=== PATIENT | male | born 1930 | race Caucasian/White ===

== ENCOUNTER 2016-06-04 16:05 | Inpatient (IN) | payer MEDICARE, BC ==
--- NOTE | ~2016-06-04 | US77 ---
[facility] A Service of [facility] RADIOLOGY TEXT RESULTS PATIENT: GISELL NATARAJAN LOCATION: [place] [address] : 30 UNIT #: [id number] AGE: [address]: Debbie David MD SEX: M ORDER DR: [id number] [facility] [address] [facility]. [place], [place] [address] [id number] MR#: [id number] Acc #: [id number] NAME: GISELL NATARAJAN. : 1930 SEX: M STUDY DATE/TIME: 06/05/2016 10:27 UNIT: [facility] ROOM: [facility] STUDY DESCRIPTION: US Kidney Bilateral Complete Attending Physician: Debbie David M.D. Ordering Physician: Alexis Gonzalez Jr., M.D. Primary Care Physician: Da Martines M.D. MEDICAL IMAGING REPORT This report is preliminary unless electronic signature is present EXAM Renal ultrasound INDICATIONS Chronic kidney disease. BUN 55 creatinine 1.8 GFR 33 PROCEDURE Philip-scale and Doppler imaging of the kidneys and bladder. COMPARISON None FINDINGS Right kidney measures 9.8 cm. Cortical thickness is 7 mm. Left kidney not well seen measures approximately 10.9 cm. There is no hydronephrosis. There are a few echogenic foci in both kidneys that may represent calculi. IMPRESSION 1. Difficult visualization of the left kidney. 2. No hydronephrosis. 3. Right renal cortical thinning may represent sequela of chronic renal disease. 4. Possible bilateral nonobstructing renal calculi Dictated by... Uri Retana M.D. THIS IS AN ELECTRONICALLY VERIFIED REPORT Uri Retana M.D. at 06/06/2016 2:17 PM EED/rnr TD: 06/05/2016 12:11 JOB #: [id number] [facility] A Service of [facility] RADIOLOGY TEXT RESULTS PATIENT: GISELL NATARAJAN LOCATION: [place] [address] : 30 UNIT #: [id number] AGE: [address]: Debbie David MD SEX: M ORDER DR: MEDICAL IMAGING REPORT Page 1 of 1 COPY
--- NOTE | ~2016-06-04 | CR72 ---
[facility] A Service of [facility] RADIOLOGY TEXT RESULTS PATIENT: GISELL NATARAJAN LOCATION: [place] [address] : 30 UNIT #: [id number] AGE: [address]: ANNAMARIA LEAL MD SEX: M ORDER DR: [id number] [facility] [address] [facility]. [place], [place] [address] [id number] MR#: [id number] Acc #: [id number] NAME: GISELL NATARAJAN. : 1930 SEX: M STUDY DATE/TIME: 06/04/2016 14:19 UNIT: [facility] ROOM: STUDY DESCRIPTION: CR Chest Single View Portable Attending Physician: Juan Olivares M.D. Ordering Physician: Juan Olivares M.D. Primary Care Physician: Da Martines M.D. MEDICAL IMAGING REPORT This report is preliminary unless electronic signature is present EXAM Portable chest 06/04/2016 INDICATIONS Shortness of breath and pneumonia today. COMPARISON STUDIES Comparison with 01/16/2014 FINDINGS There are bilateral lower zone infiltrates consistent with pneumonia. There is a small left pleural effusion. Heart size stable. Calcified mediastinal lymph nodes. Pacemaker. IMPRESSION Bilateral lower zone infiltrates consistent with pneumonia. Small left pleural effusion. There may be a trace right pleural effusion which was not mentioned above. Dictated by... Anton Gonsalez M.D. THIS IS AN ELECTRONICALLY VERIFIED REPORT Anton Gonsalez M.D. at 06/05/2016 7:54 AM MELA/brigido TD: 06/04/2016 15:16 JOB #: [id number] MEDICAL IMAGING REPORT Page 1 of 1 COPY
--- NOTE | ~2016-06-04 | EKG ---
PATIENT: GISELL NATARAJAN UNIT #: [id number] Ventricular Rate: 66 BPM Atrial Rate: 55 BPM QRS Duration: 126 ms Q-T Interval: 406 ms QTC Calculation(Bezet): 425 ms Calculated R [place]: 119 degrees Calculated T [place]: 42 degrees Diagnosis Line: Ventricular-paced rhythm with occasional Premature Diagnosis Line: ventricular complexes Diagnosis Line: Abnormal ECG Diagnosis Line: When compared with ECG of 04-JUN-2016 13:45, Diagnosis Line: (unconfirmed) Diagnosis Line: No significant change was found Diagnosis Line: Confirmed by GABRIELLE JACKSON MD ([id number]) on 06/05/2016 Diagnosis Line: 5:02:08 AM INTERPRETING MD: MANUEL IYER
--- NOTE | ~2016-06-04 | HP ---
Unit #: [id number] #: [id number] Patient: GISELL NATARAJAN [id number] [place] [id number] [facility]. [place], [place] [address] [id number] I MR#: [id number] NAME: GISELL NATARAJAN. ROOM: [address] Age: 86 Sex: M Admission Date: 06/04/2016 : 1930 Attending Physician: Amilcar Auguste M.D. Primary Care Physician: Da Martines M.D. HISTORY AND PHYSICAL CHIEF COMPLAINT Shortness of air. HISTORY OF PRESENT ILLNESS The patient is an 86-year-old male with a history of an atrial fibrillation on anticoagulation, brought to the emergency room from the [facility] with the decreased oxygenation and increased congestion and labored breathing and as per records the patient was 87% to 90% at room air and with the respiratory rate 24. The patient is unable to provide any history as the patient has been on the BiPAP and the history is obtained by speaking to the patient's and the son at the bedside. The patient has been having congestion for the last one to two days. The patient was diagnosed with the pneumonia at the halfway and is started on Levaquin and patient was gradually getting worse. The patient is a DNR/DNI and the chest x-ray shows bilateral lower lobe infiltrates consistent with pneumonia. The patient's lactic acid is 3.4. The patient is being admitted for the above reasons with the sepsis protocol and to the ICU. PAST MEDICAL HISTORY History of hypertension, atrial fibrillation, status post permanent pacemaker, hyperlipidemia, hypothyroidism, depression, benign prostatic hypertrophy, chronic venous stasis, chronic kidney disease, degenerative joint disease. PAST SURGICAL HISTORY EGD, TURP, I/D of the left foot hematoma. ALLERGIES No known allergies. HOME MEDICATIONS He is on breathing treatment, melatonin, Tylenol/APAP, senna, Synthroid, zinc, metoprolol, Coumadin and sertraline and Proscar. FAMILY HISTORY Positive for congestive heart failure. SOCIAL HISTORY The patient is a resident at the halfway. He stopped smoking about 50 years ago, does not drink alcohol. REVIEW OF SYMPTOMS Unit #: [id number] #: [id number] Patient: GISELL NATARAJAN Unable to obtain. PHYSICAL EXAMINATION GENERAL APPEARANCE: On examination the patient is lying on a bed not in acute distress. VITAL SIGNS: Temperature 101.2, pulse 81, respiratory rate 37, blood pressure 141/124, sating 92% at 4 L. HEENT: Head atraumatic, normocephalic. Pupils equal, round and reacting to light and accommodation. Extraocular movements are intact. Dry mucous membranes. NECK: Supple. LUNGS: Decreased air entry at the bases. Positive for rhonchi. HEART: Irregular rate and rhythm. ABDOMEN: Soft, positive bowel sounds. EXTREMITIES: No cyanosis. No clubbing. NEUROLOGIC: The patient is lethargic and unable to follow the commands. DIAGNOSTIC STUDIES LABORATORY DATA: Blood gas pH 7.4, pCO2 36, pO2 70, bicarb 23, oxygen saturation 92.4. Glucose 135, BUN 51, creatinine 1.5, sodium 142, potassium 3.9, chloride 107, bicarb 21, calcium 8.9, total protein 6.4, albumin 2.5, BNP is 1542 and lactic acid is 3.4, INR is 6.1, WBC is 6.4, hemoglobin 12.9, hematocrit 40.2, platelets 189, neutrophils 88.3, bands 1. Flu screen is negative. ASSESSMENT 1. Sepsis. 2. Bilateral lower lobe pneumonia. 3. Acute respiratory failure on BiPAP. 4. Coumadin toxicity. PLAN 1. Plan is to admit the patient to the inpatient with the ICU. 2. Patient will have critical care consult with Dr. Mcleod and the Renal consult with chronic kidney disease. 3. IV antibiotic with Maxipime and Zithromax. 4. Continue with the sepsis protocol. 5. The patient's BNP is 1500 and will give a dose of Lasix. 6. Patient is a DNR. Further recommendations will follow as more lab results are available. Dictated by Beckie Watson TD: 06/04/2016 17:12 JOB #: [id number] Unit #: [id number] #: [id number] Patient: GISELL NATARAJAN HISTORY AND PHYSICAL Page 1 of 1 X X HISTORY AND PHYSICAL
--- NOTE | ~2016-06-04 | CO ---
Unit #: [id number] #: [id number] Patient: GIESLL LOPEZ [id number] [address] [place], [place] [address] [id number] I MR#: [id number] NAME: GISELL LOPEZ ROOM: 547 Age: 86 Sex: M Admission Date: 06/04/2016 : 1930 Attending Physician: Debbie David M.D. Primary Care Physician: Da Martines M.D. Consultation Date: 06/05/2016 CONSULTATION REPORT REASON FOR CONSULT Acute on chronic kidney disease. HISTORY OF PRESENT ILLNESS Mr. Lopez is an 86-year-old detention patient who was admitted for shortness of breath. Most of the history was obtained from the chart and nursing at the patient is currently on BiPAP and not able to give any history. He does have a history of atrial fibrillation and it looks like he was here back in March after a fall with a pelvic fracture. He is known to have some underlying chronic kidney disease and now has an acute kidney injury with his acute illness. He was diagnosed with pneumonia at [facility] and apparently had been started on some Levaquin at that time. He continued to get worse prompting his visit here to the emergency room. The patient has been started on hospital-acquired pneumonia IV antibiotic protocol and is currently on BiPAP. He is a DNR/DNI so he is not to be put on the ventilator. The patient did have a lactic acidosis on admission. He is urinating via a Ponce. There have been no reports of hematuria. He has no swelling. I do not see on any NSAIDs or any contrast dye exposure. It is not clear what his p.o. status has been the last few days. PAST MEDICAL HISTORY Hypertension, AFib, history of pacemaker, hyperlipidemia, hypothyroidism, depression, BPH, chronic venostasis, chronic kidney disease and degenerative joint disease. PAST SURGICAL HISTORY He has had a TURP. He has had foot surgery and a pacemaker placement. He has had surgery for his hip. SOCIAL HISTORY He is a detention resident. He quit smoking a number of years ago. There is no alcohol or drug abuse reported. FAMILY HISTORY Not able to be obtained from the patient. The chart says that there is a family history of heart problems including congestive heart failure. ALLERGIES He has no known drug allergies. HOME MEDICINES 1. Proscar 5 mg at bedtime. 2. Zoloft 25 mg a day. Unit #: [id number] #: [id number] Patient: GISELL LOPEZ 3. Coumadin as directed. 4. Metoprolol 25 mg twice a day. 5. Zinc sulfate daily. 6. Synthroid 50 mcg a day. 7. Senna twice a day. 8. Tylenol p.r.n. 9. Melatonin 5 mg at bedtime. 10. Combivent inhaler. REVIEW OF SYSTEMS A complete 12-point review of systems was completed with the above findings. Further review of systems was simply not able to be obtained secondary to the patient being on BiPAP and ill. He has had some low-grade fevers here. There have been no reports of vomiting or diarrhea. No reports of bright red blood per rectum or melena. No reports of rashes. No pain issues. Again, unless otherwise indicated, the review of systems was not able to be obtained. PHYSICAL EXAMINATION GENERAL APPEARANCE: This is an elderly, 86-year-old male somewhat lethargic on BiPAP but in no acute distress. VITAL SIGNS: The patient is afebrile. Pulse 64. Respiratory rate 26. Blood pressure 121/59. Is and Os are pending. HEENT: Head is atraumatic, normocephalic. Eyes show pink conjunctivae with no scleral icterus. No nasal drainage or nose bleed. Oropharynx is dry. No thrush noted. He is on BiPAP. NECK: No rigidity. HEART: Paced and regular with no significant murmur or rub appreciated. LUNGS: Bilateral rhonchi present with BiPAP machine. Breathing is unlabored at rest. ABDOMEN: Thin and soft, nontender. No masses appreciated. EXTREMITIES: No lower extremity cyanosis or pitting edema. SKIN: Dry with no rashes. GENITOURINARY: Ponce catheter is in place with nonbloody urine. MUSCULOSKELETAL: No joint effusions noted. No CVA tenderness to palpation. NEUROLOGIC: The patient does appear to have generalized weakness but I do not see any focal deficits. LYMPHATIC: There is no neck, cervical lymphadenopathy. PSYCHIATRIC: Exam unable to be assessed. DIAGNOSTIC STUDIES LABORATORY: Chemistry this morning: Sodium 146, potassium 4.1, chloride 113, bicarb 20, glucose 129, BUN 55, creatinine 1.8. CBC showed a normal white count of 9, hemoglobin 12, platelet count 167. UA was nitrite positive with numerous red and white blood cells and bacteria. Lactic acid was 3.6. BNP was elevated at 1,500. INR was 6.1. Admission creatinine was 1.5. Initial flu screen was negative. Initial ABG noteworthy for a pO2 of 70. Review of old labs shows a creatinine of 1.3 in March and it looks like his baseline creatinine is in the mid one range. Previous urines here have mostly been negative for protein and blood. IMAGING: Chest x-ray on admission showed bilateral pneumonia. Review of old imaging here at [facility]. I do see an abdominal ultrasound in March 2012. It does not look like the kidneys were imaged at that time. There was a CT of the abdomen in February 2011. There were a few small stones in the kidneys, otherwise, no Unit #: [id number] #: [id number] Patient: GISELL LOPEZ hydronephrosis. Kidney ultrasound in April of 2005 showed smaller 9 cm kidneys. ASSESSMENT AND PLAN 1. Acute on chronic kidney disease stage 3. This looks to be prerenal with his pneumonia and acute illness. The patient looks dehydrated on exam and is noted to have a higher than expected hemoglobin considering his kidney disease. Therefore, I will give him some IV fluids but gently considering his breathing issues. His chronic kidney disease is likely related to small vessel atherosclerotic disease and nephrosclerosis. 2. Urinary tract infection. The patient is being covered with broad-spectrum antibiotics and we will follow up the urine culture that is pending. 3. Lactic acidosis. This is likely due to his pneumonia and the patient is being treated with sepsis protocol. Again, he is DNR and does not want to be put on the ventilator according to the notes. 4. History of nephrolithiasis. The patient is noted to have some blood in the urine and, with his history of kidney stones, we should recheck a kidney ultrasound to rule out any upper tract obstruction. 5. Pneumonia on antibiotic protocol for hospital-acquired pneumonia. 6. History of AFib. 7. Coumadin toxicity likely related to poor p.o. intake. 8. The patient is a DNR/DNI. I would like to thank Dr. Auguste for this consult and the opportunity to participate in the evaluation and care of Mr. Lopez. Dictated by... Alexis Gonzalez Jr., M.D. BRIANNA/caprice TD: 06/05/2016 11:14 JOB #: [id number] CONSULTATION REPORT Page 1 of 1 X Alexis Gonzalez MD X CONSULTATION REPORT
--- NOTE | ~2016-06-04 | DS ---
Unit #: [id number] #: [id number] Patient: GISELL NATARAJAN [id number] [address] [address] [id number] I MR#: [id number] NAME: GISELL NATARAJAN. ROOM: 54 Age: 86 Sex: M Admission Date: 06/04/2016 : 1930 Discharge Date: 06/05/2016 Attending Physician: Debbie David M.D. Primary Care Physician: Da Martines M.D. DISCHARGE SUMMARY REASON FOR ADMISSION Dyspnea. HISTORY OF PRESENT ILLNESS/HOSPITAL COURSE The patient originally was admitted secondary to shortness of air on 06/04/2016. Please see History and Physical for complete details. When I saw and evaluated the patient on the morning of 06/05/2016, after a very lengthy discussion with the patient's family who was present at bedside and apprised overall long-term prognosis of the patient. Family members have requested DNR status as well as comfort care measures only. They also requested hospice consultation. Later on, hospice saw and evaluated the patient and recommended transfer to inpatient facility to which the patient was later transferred on the afternoon of 06/05/2016 to inpatient facility for ongoing care. Unfortunately, his overall long-term prognosis is quite poor. Family members are well aware. CURRENT CLINICAL DIAGNOSIS AT TIME OF TRANSFER 1. Bilateral lower lobe pneumonia likely secondary to aspiration. 2. Sepsis present on admission. 3. Acute hypoxic respiratory failure. 4. Coumadin toxicity. 5. Chronic deconditioning. 6. 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 7. Hypertension. 8. Atrial fibrillation. 9. Prior history of permanent pacemaker placement. 10. Hyperlipidemia. 11. Depression. 12. Benign prostatic hypertrophy. 13. Chronic venous stasis. 14. Chronic kidney disease. 15. Failure to thrive. DISPOSITION To inpatient hospice rehab for ongoing care. Unit #: [id number] #: [id number] Patient: GISELL NATARAJAN Dictated by... Beckie Griffin/luan TD: 06/06/2016 20:38 JOB #: [id number] DISCHARGE SUMMARY Page 1 of 1 X Debbie David MD DISCHARGE SUMMARY
--- NOTE | ~2016-06-04 | A ---
[facility] Nutrition Therapy DATE: 06/05/16 Patient: GISELL NATARAJAN Physician: SARWAT Address: [address] [place] [address] DRIVE Room/Bed: [address] [place] [address], Zip: [place] [address] Admit Date: 06/04/16 Date of : 30 Height: 6 4 Weight: 145 65.77 NUTRITIONAL ASSESSMENT: REASON: Low BMI Admitting Dx: 86 y/o male admitted with DALY PNA from [facility] PMH: A-fib, DJD, CKD, HTN, HLD, hypthyroidism, depression, permanent pacemaker Anthropometrics: Ht: 76", Wt: 65.8 kg (144 lbs), BMI: 17 (underweight) Labs: Glucose 129, Na 146, BUN 55, Creat 1.8, GFR 33.3 Meds: Synthroid, Senokot, Nacl I/O & Bowel function: No shift assessment available yet Skin Integrity: No shift assessment available yet Estimated Nutrition Needs: Patient has increased nutrient needs 5918-8118 kcals per day (30-35 kcals/kg) 79-92 g protein per day (1.2-1.4 g/kg) Fluids consistent with kcal needs or per MD Assessment: Chart reviewed, events noted. See admitting dx and PMH as stated above, no shift assessment available yet. RD assessing due to underweight status, patient currently on consistent carb/healthy heart diet. RD interviewed patient's and son, who denied any hx of diabetes. confirms current weight, reporting recent weight as measured at home was 146 lbs (2 lbs more than current admission weight), she also states the patient has been eating very poorly, mainly only liquids and fruit. She does suspect weight loss, however she is unsure of amount or time frame. Per past weights, I suspect a loss of approx. 14-25 lbs over the past 3 years. Patient is sleeping, appears very weak and unable to participate in interview. Temporal muscle wasting noted, but I was unable to see the rest of the patient's body. I so suspect some degree of malnutrition but unable to definitively diagnose at this time. Discussed changing diet order to regular and adding Ensure TID with family. See recs below. *Per MD patient may go to hospice care Dx: 1) Inadequate oral intake r/t clinical condition AEB PO intake very minmal, need for liberalized diet and ONS. 2) Underweight r/t poor oral intake AEB suspected weight loss, BMI 17. [facility] Nutrition Therapy DATE: 06/05/16 Patient: GISELL NATARAJAN Physician: SARWAT Address: [address] Room/Bed: [address] [place] [address], Zip: [place] [address] Admit Date: 06/04/16 Date of : 30 Height: 6 4 Weight: 145 65.77 Intervention: Regular diet + Ensure TID, EN? Monitoring, Evaluation and Goals: 1. Increase in oral intake to meet > 50% of meal/supp intake. 2. Gradual weight gain towards a healthy BMI range. 3. Improvement in labs (BUN, creatinine, lytes). 4. Promote regular GI function. Monitor: Per protocol, criteria to determine if above goals met Recommendations: 1. Please change the patient's diet to regular and order strawberry or chocolate Ensure Enlive TID. Appreciate staff/family to assist with ordering and feeding meals and encourage PO intake. 2. If the patient is having any s/s of chewing/swallowing difficulties or has continued decreased alertness suggest NUMERICAL CONTROL MACHINE OPERATOR eval to determine safety of PO intake. On regular consistency diet at this time. 3. I suspect the patient will continue to be unable to meet nutritional needs noting recent hx of very poor oral intake and suspected weight loss. I also suspect some degree of malnutrition. If enteral feeds are consistent with patients POC suggest placing DHT and starting enteral feeds with Jevity 1.5 @ 20 ml/hr, increasing by 10 ml q 8 hours until goal rate of 60 ml/hr is reached, to provide 100% estimated needs (would provide 2160 kcals, 92 g protein and 1094 ml water). Free water flushes per MD once feeds are at goal rate, RD suggests 250 ml QID. Please consult RD if EN is started. *If EN is started, it should be noted that the patient is at risk for refeeding syndrome due to poor oral intake and suspected weight loss with underweight status. Increase feeds slowly to goal and closely monitor glucose and lytes, replacing lytes to WNL as needed. Will follow hospital course Moderate-severe nutrition risk Respectfully, Sameerafely Burrell RD, LD [facility] Nutrition Therapy DATE: 06/05/16 Patient: GISELL NATARAJAN Physician: SARWAT Address: [address] [place] [address] DRIVE Room/Bed: [address] [place] [address], Zip: [place] [address] Admit Date: 06/04/16 Date of : 30 Height: 6 4 Weight: 145 65.77 [facility] cc: client file
--- NOTE | ~2016-06-04 | EKG ---
PATIENT: GISELL NATARAJAN UNIT #: [id number] Ventricular Rate: 78 BPM Atrial Rate: 70 BPM QRS Duration: 172 ms Q-T Interval: 454 ms QTC Calculation(Bezet): 517 ms Calculated R [place]: 115 degrees Calculated T [place]: -90 degrees Diagnosis Line: Atrial fibrillation Diagnosis Line: Electronic ventricular pacemaker Diagnosis Line: Premature ventricular complexes Diagnosis Line: Marked T-wave abnormality, consider inferolateral Diagnosis Line: ischemia Diagnosis Line: Abnormal ECG Diagnosis Line: When compared with ECG of 16-JAN-2014 04:27, Diagnosis Line: Premature ventricular complexes are now Present Diagnosis Line: Confirmed by GABRIELLE JACKSON MD ([id number]) on 06/05/2016 Diagnosis Line: 5:01:33 AM INTERPRETING MD: MANUEL IYER
[2016-06-04 14:10] LABS: ARTERIAL BLD GAS O2 SATURATION 92.4 % (90.0-100.0); ARTERIAL BLOOD GAS CARBOXY HB 0.9 %sat (0.0-9.0); ARTERIAL BLOOD GAS HCO3 23.1 mmol/L; ARTERIAL BLOOD GAS MET HB 0.5 %sat (0.0-2.0); ARTERIAL BLOOD GAS PO2 70.1 mmHg (80.0-100); ARTERIAL BLOOD GAS pH 7.416 (7.350-7.450)
[2016-06-04 14:11] LABS: ARTERIAL BLOOD GAS ALLEN TEST NORMAL; ARTERIAL BLOOD GAS ART SITE RIGHT RADIAL; ARTERIAL BLOOD GAS DELIVERY NASAL CANNULA; ARTERIAL DRAW? YES
[2016-06-04 14:41] LABS: INFLUENZA A NEG (NEG); INFLUENZA B NEG (NEG)
[2016-06-04 14:46] LABS: EOSINOPHIL% 0.1 % (0.0-7.0); HEMATOCRIT 40.2 % (38.0-50.0); HEMOGLOBIN 12.9 gm/dL (13.0-16.0); LYMPHOCYTE# 0.3 X10e3 (1.0-3.5); LYMPHOCYTE% 4.1 % (17.0-45.0); MEAN CELL VOLUME 90.8 FL (83-96); MEAN CORPUSCULAR HEMOGLOBIN 29.1 PG (28-34); MEAN PLATELET VOLUME 8.9 FL (6.5-11.5); MONOCYTE# 0.5 X10e3 (0-1.0); MONOCYTE% 7.5 % (3.0-12.0); NEUTROPHIL# 5.6 X10e3 (1.5-7.1); NEUTROPHIL% 88.3 % (40-75); PLATELET COUNT 189 X10e3 (140-420); RED BLOOD COUNT 4.42 X10e (3.90-5.60); WHITE BLOOD COUNT 6.4 X10e3 (4.0-10.5)
[2016-06-04 14:49] LABS: DIFF IND NO
[2016-06-04 15:11] LABS: ALBUMIN SERUM 2.5 g/dL (3.5-5.0); BILIRUBIN, DIRECT 0.6 mg/dL (0.0-0.2); BILIRUBIN,INDIRECT 0.9 mg/dL (0.0-0.9); BILIRUBIN,TOTAL 1.5 mg/dL (0.2-2.0); CALCIUM SERUM 8.9 mg/dL (8.4-10.2); CREATININE SERUM 1.5 mg/dL (0.6-1.4); GLOM FILT RATE Estimated 41.6 mL/min (>60); POTASSIUM 3.9 mmol/L (3.5-5.1); PROTEIN TOTAL SERUM 6.4 g/dL (6.0-8.3)
[2016-06-04 15:28] LABS: PROTHROMBIN TIME (PATIENT) 68.5 SECONDS (9.6-11.5)
[2016-06-04 15:32] LABS: INR 6.1
[~2016-06-04 16:05] MED LIST: APAP325 M1 PO; ATENOLOL50 MG PO; ATORVASTATIN CA10 MG PO; AVODART0.5 MG PO; CIPRO PO; CIPRO250 MG PO; COUMADIN PO; COUMADIN1 MG PO; COUMADIN2.5 MG PO; COUMADIN5 MG; COUMADIN5 MG PO; FLOMAX0.4 M1 DOB; FLOMAX0.4 M1 PO; IPRATR-ALBUTEROL3 ML INH; LEVOTHROID50 MCG PO; LORAZEPAM1 MG PO; LOVENOX80 MG/0.8 INJ; MELATONIN5 M1 PO; METOPROLOL TAR25 MG PO; NORVASC PO; NORVASC10 MG PO; PERCOCET 5-3251 TAB PO; PRILOSEC20 MG DOB; PRINIVIL40 MG PO; PROSCAR5 MG PO; SENNA CONCENTR8.6 MG PO; SERTRALINE HCL25 M2 PO; SIMVASTATIN40 MG PO; SIMVASTATIN80 MG PO; SYNTHROID PO; SYNTHROID0.05 MG PO; TENORMIN50 MG PO; TYL325 PO; VITAMIN C100 MG PO; ZINC SULFATE220 M1 PO; ZITHROMAX PO
[2016-06-04 16:17] LABS: POC - CKMB 1.1 ng/mL (0.0-7.9); POC - TROPONIN <0.05 ng/mL (<=0.05)
[2016-06-04 18:53] LABS: URINE SOURCE CATH
[2016-06-04 19:14] LABS: URINE APPEARANCE TURBID; URINE BILIRUBIN NEG (NEG); URINE BLOOD 3+ (NEG); URINE COLOR DK YELLOW; URINE GLUCOSE NEG (NEG); URINE KETONE NEG (NEG); URINE LEUKOCYTE ESTERASE 2+ (NEG); URINE NITRATE POS (NEG); URINE PROTEIN 1+ (NEG); URINE SPECIFIC GRAVITY 1.018 (1.003-1.035)
[2016-06-04 19:17] LABS: CULTURE INDICATED? YES; URBCS1 AUWI 25-50 /[HPF] (0-2); URINE BACTERIA AUWI 1+ (NEGATIVE); URINE SQUAMOUS EPITHELIAL CELL FEW /[HPF]
[2016-06-04 19:31] LABS: URINE GRANULAR CAST 0-2 /[HPF]; URINE MUCUS PRESENT
[2016-06-05 04:39] LABS: HEMATOCRIT 40.6 % (38.0-50.0); HEMOGLOBIN 12.8 gm/dL (13.0-16.0); MEAN CELL VOLUME 92.7 FL (83-96); MEAN CORPUSCULAR HEMOGLOBIN 29.2 PG (28-34); MEAN CORPUSCULAR HGB CONC 31.5 g/dL (30-36); RED BLOOD COUNT 4.38 X10e (3.90-5.60); RED CELL DISTRIBUTION WIDTH 15.5 % (11.0-15.5); WHITE BLOOD COUNT 9.5 X10e3 (4.0-10.5)
[2016-06-05 05:09] LABS: BUN/CREATININE RATIO 30.55; CALCIUM SERUM 8.6 mg/dL (8.4-10.2); CREATININE SERUM 1.8 mg/dL (0.6-1.4); GLOM FILT RATE Estimated 33.3 mL/min (>60); POTASSIUM 4.1 mmol/L (3.5-5.1)
== END 2016-06-05 20:48 | DRG 871 ==
LOC: CED 16:05 → CEDOF 16:30 → C5B 06-05 07:37
PROVIDERS: Emergency Medicine; Internal Medicine
DX: A41.9 Sepsis, unspecified organism (principal); J69.0 Pneumonitis due to inhalation of food and vomit; J96.01 Acute respiratory failure with hypoxia; N17.9 Acute kidney failure, unspecified; I48.92 Unspecified atrial flutter; N39.0 Urinary tract infection, site not specified; T45.515A Adverse effect of anticoagulants, initial encounter; Y92.9 Unspecified place or not applicable; F03.90 Unspecified dementia, unspecified severity, without behavioral disturbance, psychotic disturbance, mood disturbance, and anxiety; I12.9 Hypertensive chronic kidney disease with stage 1 through stage 4 chronic kidney disease, or unspecified chronic kidney disease; N18.3 Chronic kidney disease, stage 3 (moderate); Z87.891 Personal history of nicotine dependence; Z95.0 Presence of cardiac pacemaker; E78.5 Hyperlipidemia, unspecified; Z51.5 Encounter for palliative care; Z66 Do not resuscitate; F32.9 Major depressive disorder, single episode, unspecified; N40.0 Benign prostatic hyperplasia without lower urinary tract symptoms; I87.8 Other specified disorders of veins; R62.7 Adult failure to thrive; E03.9 Hypothyroidism, unspecified; M19.90 Unspecified osteoarthritis, unspecified site; E86.0 Dehydration; R31.9 Hematuria, unspecified; Z87.442 Personal history of urinary calculi; Z82.49 Family history of ischemic heart disease and other diseases of the circulatory system
CPT/HCPCS: 36415; 36600; 71010; 76770; 80048; 80076; 81003; 82553; 82803; 83605; 83880; 84484; 85025; 85027; 85610; 87040; 87086; 87804; 93005; 94640; 94660; 94760; 99291; C9113; J0456; J0692; J2270; J2543; J3260; J3370